=== PATIENT | male | born 1965 | race Two or more races ===

== ENCOUNTER 2020-08-24 06:39 | Inpatient (IN) | payer OTHER ==
[~2020-08-24] VITALS: Ht 170.2 cm; Wt 93.3 kg
[~2020-08-24 06:39] MED LIST: ALBUAER3 IN; ASPI1TAB19 PO; ATOR20TA PO; CAR3125T PO; GABA300C10 PO; IRBE150T49 PO; RANO500T2 PO; ROPI0.5T32 PO
[2020-08-24] MEDS ORDERED: IODIXANOL 320MG/ML 100ML BTL IV ONE ×2 (07:12→09:34)
[2020-08-24] MEDS ORDERED: LIDOCAINE 2%HCL (LOCAL ANESTH.) INJ 20ML MDV ONE (07:13)
[2020-08-24] MEDS ORDERED: MIDAZOLAM HCL 2MG/2ML 2ml VIAL (1mg/ml) ONE (07:57)
[2020-08-24] MEDS ORDERED: VERAPAMIL 2.5MG/ML INJ 2ML VIAL IV ONE (07:57)
[2020-08-24] MEDS ORDERED: HEPARIN SODIUM (PORCINE) 5000 UNITS/ML 1ML VIAL ONE (07:57)
[2020-08-24] MEDS ORDERED: ANGIOMAX 250 MG VIAL IV ONE (07:57)
[2020-08-24] MEDS ORDERED: fentaNYL CITRATE 100 MCG/2 ML VL ONE (07:57)
[2020-08-24] MEDS ORDERED: SODIUM CHL 0.9% 50 ML ONE (07:58)
[2020-08-24] MEDS ORDERED: TICAGRELOR 90 MG TAB ONE (09:50)
[2020-08-24] MEDS ORDERED: MORPHINE SULFATE INJECTION 2 MG/ML SYRG IV PRN (10:15)
[2020-08-24] MEDS ORDERED: ACETAMINOPHEN 500 MG TAB PO PRN (10:15)
[2020-08-24] MEDS ORDERED: ONDANSETRON HCL 4 MG/2 ML VIAL IV PRN (10:15)
[2020-08-24] MEDS ORDERED: ALBUTEROL SULF HFA 90MCG INH 200DOSE IN PRN (10:15)
[2020-08-24] MEDS ORDERED: HYDROcodone-ACET 5/325MG TAB PO PRN (10:15)
[2020-08-24] MEDS ORDERED: NITROGLYCERIN 0.4 MG SL TAB SL PRN (10:15)
[2020-08-24 17:21] VITALS: BP 126/81
[2020-08-24] MEDS ORDERED: ATORVASTATIN 20 MG TAB PO SCH (18:00)
[2020-08-24] MEDS: SODIUM CHLORIDE 0.9% 1,000 ML IV SCH ×2 (18:13→19:13)
[2020-08-24] MEDS: TICAGRELOR 90 MG TAB PO SCH (21:44)
[2020-08-24] MEDS: RANOLAZINE ER 500 MG TAB PO SCH (21:44)
[2020-08-24] MEDS: CARVEDILOL 3.125 MG TAB PO SCH (21:45)
[2020-08-24 22:00] VITALS: BP 143/92
[2020-08-24] MEDS ORDERED: GABAPENTIN 300 MG CAP PO SCH (22:00)
[2020-08-25 05:55] VITALS: BP 134/82
[2020-08-25] MEDS: SODIUM CHLORIDE 0.9% 1,000 ML IV SCH (07:00)
[2020-08-25 09:00] VITALS: BP 138/101
[2020-08-25] MEDS: CARVEDILOL 3.125 MG TAB PO SCH (09:49)
[2020-08-25] MEDS: RANOLAZINE ER 500 MG TAB PO SCH (09:50)
[2020-08-25] MEDS: TICAGRELOR 90 MG TAB PO SCH (09:51)
[2020-08-25] MEDS ORDERED: ASPirin-EC 81 mg tab PO SCH (10:00)
[2020-08-25] MEDS ORDERED: TICA90TA PO (11:22)
[2020-08-25 12:08] VITALS: BP 138/101
== END 2020-08-25 13:00 | disposition home or self-care (01) | DRG 247 ==
LOC: CATH 06:39 → TELE 10:10 → TELE-EAST 11:15
PROVIDERS: ADMIT Internal Medicine; ATTEND Internal Medicine
PROC: 027035Z Dilation of Coronary Artery, One Artery with Two Drug-eluting Intraluminal Devices, Percutaneous Approach (ICD-10-PCS; principal; 2020-08-24)
PROC: B210YZZ Fluoroscopy of Single Coronary Artery using Other Contrast (ICD-10-PCS; 2020-08-24)
PROC: B212YZZ Fluoroscopy of Single Coronary Artery Bypass Graft using Other Contrast (ICD-10-PCS; 2020-08-24)
PROC: B218YZZ Fluoroscopy of Left Internal Mammary Bypass Graft using Other Contrast (ICD-10-PCS; 2020-08-24)
PROC: B41JYZZ Fluoroscopy of Other Lower Arteries using Other Contrast (ICD-10-PCS; 2020-08-24)
DX: I25.119 Atherosclerotic heart disease of native coronary artery with unspecified angina pectoris (principal); Z95.1 Presence of aortocoronary bypass graft
CPT/HCPCS: 92920; 92950; 93005; 93454; 99152; 99153; C1874; C1887; G0378; J2250; Q9967